=== PATIENT | male | born 1960 | race Caucasian/White ===

== ENCOUNTER 2016-09-05 11:43 | Emergency (ER) | END 2016-09-05 13:46 | disposition home or self-care (01) | DX: R07.81 Pleurodynia (principal); M94.0 Chondrocostal junction syndrome [Tietze]; I10 Essential (primary) hypertension; R07.9 Chest pain, unspecified | CPT/HCPCS: 36415; 71010; 80048; 84484; 85025; 85610; 85730; 93005; Z7502 ==

== ENCOUNTER 2017-03-26 17:22 | Inpatient (IN) | END 2017-03-28 13:00 | disposition home or self-care (01) | DRG 446 ==